=== PATIENT | female | born 1990 | race Caucasian/White ===

== ENCOUNTER 2019-01-22 13:53 | Inpatient (IN) ==
[2019-01-22] MEDS ORDERED: RINGER'S SOLUTION,LACTATED 1,000 ML IV ONE (15:12)
[2019-01-22] MEDS ORDERED: OXYTOCIN/DEXTROSE 5%-WATER 30 UNITS/500 ML BAG IV ONE ×2 (15:12→15:53)
--- NOTE | 2019-01-22 15:29 | HP ---
Chief Complaint - Chief Complaint Date of Service: 01/22/19 Time of Service: 15:17 Chief Complaint: contractions, elevated BP History of Present Illness: 29 yo at 37 1/7 weeks presents to L&D in early labor for augmentation of labor due to GHTN. She denies PURCELL, visual changes, epigastric pain, LOF, or vaginal bleeding. This complicated by anxiety, chronic Xanax use, late PNC (27wks), smoker, alcohol use in early , positive drug screen (amphetamines and benzodiazipines), GHTN, nonadherent to medical advice (failed 1h GTT, did not do 3h GTT, random BS in office WNL, but u/s today suspicious for GDM), UTI, and 4 month old that of SIDS. Rh positive Rubella immune GBS negative Medical History (Updated 01/22/19 @ 15:29 by Андрей Ash DO) Anxiety and depression (Chronic) Substance abuse complicating , antepartum (Acute) Tobacco abuse (Acute) with insufficient care (Acute) Alcohol use complicating , first trimester (Acute) Anxiety as teenager- takes Xanax Depression Xanax Muscle spasm Rheumatoid arthritis dx as teenager depression 2005 Surgical History: Surgical History (Updated 01/22/19 @ 15:29 by Андрей Ash DO) teeth extracted Family History: Family History (Updated 10/15/18 @ 13:50 by Aaliyah Tripathi RN) Mother RHA (rheumatoid arthritis) Father Hypertension Grandfather Hypertension Son , 4 month old SIDS (sudden infant syndrome) Social History: Preferred Language [place] Smoking Status Current every day smoker (Last Updated 01/22/19 @ 14:22 by Андрей Ash DO) No Social History Section defined Review Of Systems (GEN) - Review of Systems Generalized/Overall Review: Present: No Symptoms Reported EENTM: Present: No Symptoms Reported Respiratory: Present: No Symptoms Reported Cardiac: Present: No Symptoms Reported Abdominal: Present: No Symptoms Reported, Other - mild contraction Genitourinary: Present: No Symptoms Reported Musculoskeletal: Present: No Symptoms Reported Neurological: Present: No Symptoms Reported Skin: Present: No Symptoms Reported Endocrine: Present: No Symptoms Reported Allergies/Adverse Reactions: Allergies Allergy/AdvReac Type Severity Reaction Status Date / Time No Known Allergies Allergy Verified 01/22/19 13:19 Home Medications: HOME MEDICATIONS alprazolam 0.5 mg tablet 0.5 mg PO BID-TID PRN 10/15/18 [Last Taken 01/21/19 10:00] acetaminophen 500 mg tablet 500 mg PO Q6H PRN 11/21/18 [Last Taken Unknown] Vits96/Iron Fum/Folic [ S] 1 tab PO DAILY 01/22/19 [Last Taken 01/21/19 10:00] Exam - Exam Vital Signs: Ht 1.65m, Weight 107.5 kg, Blood Pressure 143/83, P 75, O2 99%, R16 Constitutional: Present: Alert, Oriented x3, Cooperative, No distress ENT Exam: Present: hearing grossly normal Neck: Present: non-tender. Absent: thyromegaly Breasts: Present: Exam deferred Respiratory: Present: lungs clear, no respiratory distress Cardiovascular/Chest: Present: regular rate, rhythm, no edema Abdomen: Present: soft, no rebound tenderness, other - gravid /Rectal: Present: Other - cervix - 1-2/50/-4 Extremity: Present: no pedal edema, no calf tenderness Skin Exam: Present: normal color, warm/dry, no cyanosis Neurologic: Present: alert, normal mood/affect, oriented x 3, other - DTR 2/4, no clonus Appearance: Present: appropriate appearance, appropriate insight Eye contact: Present: cooperative, good eye contact Thoughts: Present: normal thought pattern Assessment/Plan - Assessment/Plan (1) Gestational [-induced] hypertension without significant proteinuria, complicating childbirth Assessment: Admit for pitocin induction of labor. Epidural PRN. Preeclampsia precautions. Problem: Acute (2) Anxiety and depression Problem: Chronic (3) Substance abuse complicating , antepartum Problem: Acute (4) Tobacco abuse Problem: Acute (5) with insufficient care Problem: Acute Qualifiers: Trimester: second trimester Qualified Code(s): O09.32 - Supervision of with insufficient care, second trimester (6) Alcohol use complicating , first trimester Problem: Acute
[2019-01-22] MEDS: RINGER'S SOLUTION,LACTATED 1,000 ML IV PRN (15:51)
[2019-01-22 16:20] LABS: Cocaine Ur Negative (NEGATIVE); Urine Barbiturate Negative (NEGATIVE); Urine Opiates Negative (NEGATIVE); Urine PCP Negative (NEGATIVE); Urine THC Negative (NEGATIVE)
[2019-01-22 16:21] LABS: Urine Benzodiazepines Positive (NEGATIVE)
[2019-01-23] MEDS: RINGER'S SOLUTION,LACTATED 1,000 ML IV PRN (00:01)
[2019-01-23] MEDS ORDERED: ONDANSETRON HCL/PF 2 MG/ML VIAL IV PRN (00:50)
[2019-01-23] MEDS ORDERED: NALOXONE HCL 1 MG/1 ML SYRG IV PRN (00:50)
[2019-01-23] MEDS ORDERED: BUPIVACAINE HCL/0.9 % NACL/PF 250 ML EP PRN (00:50)
[2019-01-23] MEDS ORDERED: fentaNYL CITRATE/PF 50 MCG/ML AMPUL IT SCH (01:00)
--- NOTE | 2019-01-23 01:38 | ANES ---
Anesthesia Pre Procedure Eval HOME MEDICATIONS alprazolam 0.5 mg tablet 0.5 mg PO BID-TID PRN 10/15/18 [Last Taken 01/21/19 10:00] acetaminophen 500 mg tablet 500 mg PO Q6H PRN 11/21/18 [Last Taken Unknown] Vits96/Iron Fum/Folic [ S] 1 tab PO DAILY 01/22/19 [Last Taken 01/21/19 10:00] Allergies/Adverse Reactions: Allergies Allergy/AdvReac Type Severity Reaction Status Date / Time No Known Allergies Allergy Verified 01/22/19 13:19 - Planned Procedure Planned Procedure: size greater dates/Medical induction/clinic hypert Medication List Reviewed:: Yes Allergies Verified: Yes Medical History (Updated 01/22/19 @ 15:38 by Андрей Ash DO) Anxiety and depression (Chronic) Substance abuse complicating , antepartum (Acute) Tobacco abuse (Acute) with insufficient care (Acute) Alcohol use complicating , first trimester (Acute) Anxiety as teenager- takes Xanax Depression Xanax Muscle spasm Rheumatoid arthritis dx as teenager depression 2005 Surgical History (Updated 01/22/19 @ 15:29 by Андрей Ash DO) teeth extracted Family History (Updated 10/15/18 @ 13:50 by Aaliyah Tripathi RN) Mother RHA (rheumatoid arthritis) Father Hypertension Grandfather Hypertension Son , 4 month old SIDS (sudden syndrome) - Family Anesthesia History Family History:: no untoward family reactions to anesthesia, no familial bleeding tendencies, no family history of clotting disorders, no family history of premature - Airway/Neck/Teeth Within Normal Limits:: Yes Neck Exam: full range of motion Mallampatti Score: 2 Thyromental (T-M) distance: > 6 cm Mandibulo Hyoid distance: > 3 cm - Respiratory Respiratory Physical: lungs clear - CSE for labor analgesia Smoking Status: Current every day smoker Discussed smoking cessation including day of surgery: Yes Sleep Apnea by current assessment: No - Cardiovascular Cardiac History: hypertension - gestational Tolerate Activity: Fair Heart Sounds: S1 & S2, Regular - Anesthesia Assessment and Plan ASA Class: PS, II Anesthesia Type Plan: Epidural
--- NOTE | 2019-01-23 01:55 | ANES ---
Anesthesia Procedure Note Procedure Note: ANESTHESIA PROCEDURE NOTE Date of Procedure: 01/23/2019 Time of procedure: 1:35 AM. Performed by: Taiwo Núñez CRNA, MSN Horse Race Timer: Bobbi Aranda RN. Preprocedure diagnosis: Active labor, labor pain. Post procedure diagnosis: Same. Procedure:Epidural for labor analgesia L3 4. Indications: Labor pain. Findings: See below. Details of the procedure: The patient was placed on the side of the bed in sitting positionand prepped with DuraPrep then draped in a sterile fashion. Lidocaine 1% was infiltrated to the skin and subcutaneous tissues at the level of the L3 4 interspace. An 18-gauge Touhy needle was used to approach the epidural space with loss of resistance technique. Once loss of resistance was achieved a 27-gauge spinal needle was passed through the epidural needle and CSF was contacted. After CSF returned, 20 mcg of fentanyl was injected in the spinal needle was removed the epidural catheter was then threaded approximately 4 cm in the epidural needle was removed. The catheter was taped in place and after careful aspiration 3 mL of 1.5% lidocaine with 1-200,000 epinephrine was injected without change in maternal heart rate or sensorium. . EBL: Minimal. Fluids: N/A. Specimen: N/A. Post procedure condition: The patient tolerated the procedure well with good relief. No complications were noted. Thank you for this consultation. Taiwo Núñez CRNA, MSN
--- NOTE | 2019-01-23 01:56 | ANES ---
Post Anesthesia Discharge - Transfer of Care Transfer of Care handoff given to nurse: Yes - Discharge from PACU Discharge from PACU when meets criteria: Yes - Comfortable in PACU.
--- NOTE | 2019-01-23 02:10 | ANES ---
Post Anesthesia Assessment - Vital Signs Airway Patency: Normal - Mental Status Level Of Consciousness: Awake, Alert, Appropriate - Pain Level Pain Score: 0 - N/V Assessment Nausea/Vomiting Presence: None Dehydration:: No
[2019-01-23] MEDS ORDERED: ACETAMINOPHEN 325 MG TABLET PO PRN (02:48)
[2019-01-23] MEDS ORDERED: BISACODYL 10 MG SUPP.RECT RC PRN (02:48)
[2019-01-23] MEDS ORDERED: HYDROCORTISONE 30 APPL TUBE TP PRN (02:48)
[2019-01-23] MEDS ORDERED: BENZOCAINE/MENTHOL 81 SPRAY CAN TP PRN (02:48)
[2019-01-23] MEDS ORDERED: OXYTOCIN/DEXTROSE 5%-WATER 30 UNITS/500 ML BAG IV ONE (02:48)
[2019-01-23] MEDS ORDERED: GLYCERIN/WITCH HAZEL LEAF 40 APPL BOX TP PRN (02:48)
[2019-01-23] MEDS ORDERED: SENNOSIDES 8.6 MG TABLET PO PRN (02:48)
[2019-01-23] MEDS ORDERED: ALPRAZolam 0.5 MG TABLET PO PRN (02:49)
--- NOTE | 2019-01-23 02:52 | OR ---
Operative Report - Dictated Report Narrative: Spontaneous vaginal delivery of viable female at 0214 on 01/23/2019 with Apgars 6 and 8, weighing 3077 g. Infant delivered as I was walking into the room. SROM with moderate meconium Placenta delivered complete, intact, with three vessel cord Estimated blood loss: 200 mL Anesthesia: epidural Lacerations: None History for MU History for Definition: * The number of deliveries resulting in a live the patient experienced prior to current hospitalization * The previous delivery of live twins or any live multiple gestation is considered one live event. *If primagravida or nulliparous is documented select zero for the number of previous live births. Live Events: Live Events: 2
[2019-01-23] MEDS: IBUPROFEN 800 MG TABLET PO PRN ×3 (03:41→23:16)
[2019-01-23] MEDS: oxyCODONE HCL/ACETAMINOPHEN 1 TAB TABLET PO PRN ×4 (04:07→23:16)
[2019-01-23] MEDS ORDERED: RHO(D) IMMUNE GLOBULIN 1,500 UNIT SYRINGE IM ONE ×2 (08:00→08:15)
[2019-01-23] MEDS: MISOPROSTOL 200 MCG TABLET PO SCH ×2 (08:00→16:29)
--- NOTE | 2019-01-23 08:01 | PN ---
Progess Note - Interim Date: 01/23/19 Time: 08:00 Narrative: 01/23/19 08:00 Patient denies complaints. bleeding heavier than usual. Patient has history of heavy bleeding after previous pregnancies. Vital signs stable. Uterus firm at umbilicus +1 Impression/plan: Heavy bleeding-will start on Cytotec 200 g orally every 8 hours 24 hours.
[2019-01-23] MEDS: PRENATAL VITS96/IRON FUM/FOLIC 1 TAB TABLET PO SCH (08:50)
[2019-01-23] MEDS: DOCUSATE SODIUM 100 MG CAPSULE PO SCH ×2 (08:51→23:17)
[2019-01-24] MEDS: MISOPROSTOL 200 MCG TABLET PO SCH (00:08)
[2019-01-24] MEDS: PRENATAL VITS96/IRON FUM/FOLIC 1 TAB TABLET PO SCH (08:20)
[2019-01-24] MEDS: DOCUSATE SODIUM 100 MG CAPSULE PO SCH ×2 (08:20→20:38)
--- NOTE | 2019-01-24 13:03 | PN ---
Subjective - Date and Time Seen Date: 01/24/19 Time: 12:59 Objective - Vitals Vitals: Last Vital Signs Temp 36.5 C 01/24/19 07:15 Pulse 83 01/24/19 07:15 Resp 18 01/24/19 07:15 BP 131/73 01/24/19 11:30 Pulse Ox 99 01/24/19 07:15 Patient denies complaints. bleeding significantly improved after 24 hours of Cytotec Lochia wnl Abdomen - soft, nontender Uterus - firm, at umbilicus - 1 No calf tenderness Impression: day #1 - s/p spontaneous vaginal delivery. Positive urine drug screen for amphetamines and benzodiazepines - [facility] automatically contacted. Plan: Continue routine care. Peds aware of drug screen results. Reflex testing in progress. Assessment/Plan - Problems/Diagnosis (1) Gestational [-induced] hypertension without significant proteinuria, complicating childbirth Problem: Acute (2) Anxiety and depression Problem: Chronic (3) Substance abuse complicating , antepartum Problem: Acute (4) Tobacco abuse Problem: Acute (5) with insufficient care Problem: Acute Qualifiers: Trimester: second trimester Qualified Code(s): O09.32 - Supervision of with insufficient care, second trimester (6) Alcohol use complicating , first trimester Problem: Acute
[2019-01-24] MEDS: oxyCODONE HCL/ACETAMINOPHEN 1 TAB TABLET PO PRN (20:38)
[2019-01-24] MEDS: IBUPROFEN 800 MG TABLET PO PRN (20:38)
[2019-01-25] MEDS: PRENATAL VITS96/IRON FUM/FOLIC 1 TAB TABLET PO SCH (08:52)
[2019-01-25] MEDS: DOCUSATE SODIUM 100 MG CAPSULE PO SCH ×2 (08:52→21:40)
[2019-01-25] MEDS: IBUPROFEN 800 MG TABLET PO PRN ×3 (08:54→21:40)
[2019-01-25] MEDS: oxyCODONE HCL/ACETAMINOPHEN 1 TAB TABLET PO PRN ×3 (08:54→21:40)
--- NOTE | 2019-01-25 09:10 | PN ---
Subjective - Date and Time Seen Date: 01/25/19 Time: 09:10 Objective - Vitals Vitals: Last Vital Signs Temp 36.5 C 01/25/19 07:08 Pulse 66 01/25/19 07:08 Resp 16 01/25/19 07:08 BP 136/80 01/25/19 07:08 Pulse Ox 99 01/25/19 07:08 Patient denies complaints. Bottle feeding Lochia wnl Abdomen - soft, nontender Uterus - firm, at umbilicus - 2 No calf tenderness Impression: day #2 - s/p spontaneous vaginal delivery. Gestational hypertension-resolved. Plan: Routine discharge instructions Assessment/Plan - Problems/Diagnosis (1) Gestational [-induced] hypertension without significant proteinuria, complicating childbirth Problem: Acute (2) Anxiety and depression Problem: Chronic (3) Substance abuse complicating , antepartum Problem: Acute (4) Tobacco abuse Problem: Acute (5) with insufficient care Problem: Acute Qualifiers: Trimester: second trimester Qualified Code(s): O09.32 - Supervision of with insufficient care, second trimester (6) Alcohol use complicating , first trimester Problem: Acute
[2019-01-25 18:57] VITALS: BP 149/82
== END 2019-01-25 23:32 | disposition home or self-care (01) | DRG 807 ==
LOC: RAD 13:53 → OB 13:55
PROVIDERS: ADMIT Obstetrics & Gynecology; ATTEND Obstetrics & Gynecology
DX: O99.314 Alcohol use complicating childbirth; F17.210 Nicotine dependence, cigarettes, uncomplicated; O13.4 Gestational [pregnancy-induced] hypertension without significant proteinuria, complicating childbirth; O99.324 Drug use complicating childbirth; O99.334 Smoking (tobacco) complicating childbirth; Z37.0 Single live birth; Z3A.37 37 weeks gestation of pregnancy; F15.90 Other stimulant use, unspecified, uncomplicated; O77.0 Labor and delivery complicated by meconium in amniotic fluid; O99.344 Other mental disorders complicating childbirth; O72.2 Delayed and secondary postpartum hemorrhage; F41.8 Other specified anxiety disorders
CPT/HCPCS: 59025; 76816; 80307; 85460; 88307; J2790